=== PATIENT | female | born 1990 | race Two or more races ===

== ENCOUNTER 2021-07-21 14:20 | Emergency (ER) | payer OTHER ==
[~2021-07-21] VITALS: Ht 165.1 cm; Wt 68.9 kg
== END 2021-07-21 20:06 | disposition home or self-care (01) ==
LOC: ER 14:20
DX: R51.9 Headache, unspecified (principal); J32.0 Chronic maxillary sinusitis

== ENCOUNTER 2021-12-15 07:09 | Emergency (ER) | payer OTHER ==
[~2021-12-15] VITALS: Ht 167.6 cm; Wt 68.9 kg
== END 2021-12-15 10:17 | disposition home or self-care (01) ==
LOC: ER 07:09
DX: J06.9 Acute upper respiratory infection, unspecified (principal); A49.3 Mycoplasma infection, unspecified site; Z20.822 Contact with and (suspected) exposure to COVID-19

== ENCOUNTER 2022-10-03 02:12 | Emergency (ER) | payer OTHER ==
[~2022-10-03] VITALS: Ht 167.6 cm; Wt 77.1 kg
[2022-10-03] MEDS ORDERED: NORFLEX100MG PO ×2 (05:20→05:27)
[2022-10-03] MEDS ORDERED: KETO10TA2 PO ×2 (05:20→05:27)
== END 2022-10-03 05:29 ==
LOC: ER 02:12
DX: M25.511 Pain in right shoulder (principal)